=== PATIENT | female | born 1950 | race Caucasian/White ===

== ENCOUNTER 2018-04-12 13:16 | Outpatient (REF) | payer MEDICARE, MEDICAID, SELFPAY ==
[2018-04-12 20:39] LABS: Abs Immature Grans 0.01 k/cumm (0.0-0.09); Absolute Basophil Count 0.02 k/cumm (0.0-0.2); Absolute Eosinophil Count 0.07 k/cumm (0.0-0.7); Absolute Lymphocyte Count 1.77 k/cumm (1.2-3.4); Absolute Monocyte Count 0.61 k/cumm (0.11-0.7); Absolute Neutrophil Count 3.17 k/cumm (1.2-6.7); Basophils % 0.4; Eosinophils % 1.2; HCT 41.8 % (36.0-46.0); HGB 13.6 g/dL (12.0-15.5); Immature Grans % 0.2; Lymphocytes % 31.3; Mean Corp. HGB Concentration 32.5 g/dL (32.0-36.0); Mean Corpuscular Hemoglobin 31.3 pg (27.0-33.0); Mean Corpuscular Volume 96.3 fL (80-95); Mean Platelet Volume 10.9 fL (8.0-11.0); Monocytes % 10.8; Neutrophils % 56.1; Platelet Count 240 x1000/uL (130-400); RBC 4.34 m/cumm (4.00-5.20); RBC Distribution Width 12.9 % (11.7-14.6); White Blood Cell Count 5.65 k/cumm (4.4-10.8)
[2018-04-12 21:09] LABS: ALT 13 U/L (12-78); AST 15 U/L (15-37); Alkaline Phosphatase 81 U/L (46-116); Anion Gap 9.4 mmol/L (3-11); BUN 10 mg/dL (7-18); Bilirubin, Total 1.1 mg/dL (0.2-1.0); CO2 31.6 mmol/L (21.0-32.0); CREATININE 0.71 mg/dL (0.55-1.02); Calcium 9.4 mg/dL (8.5-10.1); Chloride 103 mmol/L (98-107); Cholesterol 227 mg/dL (50-200); Glucose 84 mg/dL (70-100); HDL Cholesterol 77 mg/dL (40-60); LDL CHOLESTEROL 134 mg/dL (<100); Potassium 3.7 mmol/L (3.5-5.1); Sodium 144 mmol/L (136-145); Total Protein 7.4 g/dL (6.4-8.2); Triglyceride 67 mg/dL (30-150); Vitamin B12 300 pg/mL (193-986)
[2018-04-12 21:19] LABS: C-Reactive Protein 0.17 mg/dL (0.0-0.3)
[2018-04-15 09:05] LABS: Vitamin D 25 Total 110.4 ng/ml (30-100)
== END 2018-04-12 13:36 ==
LOC: NCHCN 13:16
PROVIDERS: PCP Family Medicine; Visit Provider Family Medicine
DX: E55.9 Vitamin D deficiency, unspecified (principal); C50.919 Malignant neoplasm of unspecified site of unspecified female breast; E78.89 Other lipoprotein metabolism disorders
CPT/HCPCS: 80053; 80061; 82306; 83721; 82607; 85025; 86140

== ENCOUNTER 2019-04-14 13:24 | Outpatient (REF) | payer MEDICARE, MEDICAID, SELFPAY ==
[2019-04-14 22:08] LABS: HCT 42.4 % (36.0-46.0); HGB 13.7 g/dL (12.0-15.5); Mean Corp. HGB Concentration 32.3 g/dL (32.0-36.0); Mean Corpuscular Hemoglobin 30.3 pg (27.0-33.0); Mean Corpuscular Volume 93.8 fL (80-95); Platelet Count 303 x1000/uL (130-400); RBC 4.52 m/cumm (4.00-5.20); RBC Distribution Width 13.3 % (11.7-14.6); White Blood Cell Count 5.82 k/cumm (4.4-10.8)
[2019-04-14 22:22] LABS: Calculated LDL 136 mg/dL (<100); Cholesterol 219 mg/dL (<200); Glucose 82 mg/dL (74-106); HDL Cholesterol 69 mg/dL (40-60); Triglyceride 74 mg/dL (<150)
[2019-04-14 22:57] LABS: Vitamin D 25 Total 103.5 ng/ml (30-100)
== END 2019-04-14 13:44 ==
LOC: NCHCN 13:24
PROVIDERS: PCP Family Medicine; Visit Provider Family Medicine
DX: C50.919 Malignant neoplasm of unspecified site of unspecified female breast (principal); R53.83 Other fatigue; E55.9 Vitamin D deficiency, unspecified
CPT/HCPCS: 80061; 82306; 82947; 85027